=== PATIENT | female | born 1960 | race Hispanic/Latino ===

== ENCOUNTER 2017-10-19 14:35 | Emergency (ER) | payer OTHER ==
[2017-10-19] MEDS ORDERED: PEPCID IV ONE (14:37)
[2017-10-19] MEDS ORDERED: BENADRYL IV ONE (14:37)
--- NOTE | 2017-10-19 14:42 | Emergency Department Report ---
HPI - General Time Seen by Provider: 10/19/17 14:37 - HPI HPI: Room 23 The patient is 49-year-old female presenting with a chief complaint of allergic reaction. 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 The patient has an allergy to latex. The patient states she was never touched by the latex but it's presence in the room caused her to have an allergic reaction. The patient states she began itching and then coughing. Patient complains of slight shortness of breath Location: [See above] Duration: [See above] Quality: Itching, shortness of breath Severity: Moderate Modifying factors: [see above] Context: [see above] Mode of transportation: Unknown ED Past Medical Hx - Past Medical History Hx GERD: Yes - Family History Family history: no significant - Medications Home Medications: Home Medications Medication Instructions Recorded Confirmed Last Taken Type EPINEPHrine (NF) [Epipen (Nf)] 0.3 mg IM ONCE PRN #1 syringekit 10/19/17 Unknown Rx Famotidine [Pepcid] 20 mg PO BID #6 tablet 10/19/17 Unknown Rx Prednisone [predniSONE 10 mg 10 mg PO .TAPER #1 tab.ds.pk 10/19/17 Unknown Rx (6-Day Pack, 21 Tabs)] diphenhydrAMINE [Benadryl CAP] 50 mg PO Q6HR #24 capsule 10/19/17 Unknown Rx ED Review of Systems ROS: Stated complaint: LOI Other details as noted in HPI Respiratory: cough, shortness of breath Skin: pruritus Physical Exam - Physical Exam Physical Exam: GENERAL: The patient is well-developed well-nourished female sitting on stretcher coughing frequently. [] HEENT: Normocephalic. Atraumatic. Extraocular motions are intact. Patient has moist mucous membranes. Oropharynx clear NECK: Supple. Trachea midline. There is no stridor CHEST/LUNGS: Clear to auscultation. There is no respiratory distress noted. HEART/CARDIOVASCULAR: Regular. There is tachycardia. There is no gallop rub or murmur. ABDOMEN: Abdomen is soft, nontender. Patient has normal bowel sounds. There is no abdominal distention. SKIN: There is no rash. There is no diaphoresis. NEURO: The patient is awake, alert, and oriented. The patient is cooperative. The patient has normal speech MUSCULOSKELETAL: There is no evidence of acute injury. ED Course - Reevaluation(s) Reevaluation #1: 10/19/17 15:28 Patient states she feels improved but still itching Reevaluation #2: 10/19/17 16:42 Patient states she feels improved and is ready to go home ED Medical Decision Making - Radiology Data Radiology results: report reviewed (lateral soft tissue neck x-ray), image reviewed (lateral soft tissue neck x-ray) interpreted by me: Lateral soft tissue neck x-ray-no prevertebral swelling. No evidence of epiglottitis [facility] [address] [place] [address] XRay Report Signed Patient: RACHEL RODRIGUES MR#: [id number] : 1960 Acct:[id number] Age/Sex: 56 / F ADM Date: 10/19/17 Loc: ED Attending Dr: Ordering Physician: HÉCTOR IRIZARRY MD Date of Service: 10/19/17 Procedure(s): XR neck soft tissue Accession Number(s): [id number] cc: HÉCTOR IRIZARRY MD Fluoro Time In Minutes: Soft tissue neck 2 views: History: Allergic reaction, shortness of breath. Findings: The intraventricular colon appears unremarkable. Normal prevertebral soft tissue. Severe cervical spondylosis C5-C6 and C6-C7. Impression: Essentially negative soft tissue neck. Transcribed By: PTP Dictated By: SIMONE LENNON MD Electronically Authenticated By: SIMONE LENNON MD Signed Date/Time: 10/19/171516 DD/ 15 TD/TT: 10/19/171516 - Differential Diagnosis acute allergic reaction Critical care attestation.: If time is entered above; I have spent that time in minutes in the direct care of this critically ill patient, excluding procedure time. ED Disposition Clinical Impression: Acute allergic reaction Disposition: DC-01 TO HOME OR SELFCARE Is pt being admited?: No Does the pt Need Aspirin: No Condition: Stable Instructions: Allergies (ED), Anaphylaxis (ED) Additional Instructions: Return to the emergency department immediately should you develop worsening symptoms, fever, inability to tolerate food or liquid or any other concerns. Prescriptions: diphenhydrAMINE [Benadryl CAP] 50 mg PO Q6HR #24 capsule EPINEPHrine (NF) [Epipen (Nf)] 0.3 mg IM ONCE PRN #1 syringekit PRN Reason: Shortness Of Breath Famotidine [Pepcid] 20 mg PO BID #6 tablet Prednisone [predniSONE 10 mg (6-Day Pack, 21 Tabs)] 10 mg PO .TAPER #1 tab.ds.pk Referrals: YULIET GROSS MD [Primary Care Provider] - 3-5 Days Time of Disposition: 16:49
[2017-10-19 14:51] VITALS: BP 127/65
[2017-10-19] MEDS ORDERED: S2 RACEPINEPHRINE 2.25% IH ONE ×2 (15:38→15:59)
--- NOTE | 2017-10-19 15:38 | XRay Report ---
Soft tissue neck 2 views: History: Allergic reaction, shortness of breath. Findings: The intraventricular colon appears unremarkable. Normal prevertebral soft tissue. Severe cervical spondylosis C5-C6 and C6-C7. Impression: Essentially negative soft tissue neck.
== END 2017-10-19 17:10 | disposition home or self-care (01) ==
LOC: EDSEX → ED 14:35
DX: T78.40XA Allergy, unspecified, initial encounter (principal); K21.9 Gastro-esophageal reflux disease without esophagitis; Y92.89 Other specified places as the place of occurrence of the external cause
CPT/HCPCS: 70360; 94640; 96374; 96375; 99283; J1200